=== PATIENT | female | born 1975 | race Caucasian/White ===

== ENCOUNTER 2018-10-29 13:04 | Day surgery (SDC) | payer OTHER, MEDICAID, SELFPAY ==
--- NOTE | 2018-10-29 | PATH_ITS ---
[facility] Accession Number: [id number] . 01 Material submitted: . DUODENAL BIOPSY . 01 Clinical history: . DUODENAL BIOPSY R/O CELIAC SPRUE . 02 Diagnosis: Biopsy, Duodenum: Fragments of normal appearing duodenum mucosa. Normal delicate mucosal villi present. Negative for significant inflammation, dysplasia and malignancy. MRV/10/31/2018 . 02 Electronically signed: . Jorge A Fuller MD, Pathologist NPI- [id number] . 01 Gross description: . DUODENAL BIOPSY: Received in formalin are multiple fragment(s) of magdaleno, soft tissue measuring 0.6 x 0.4 x 0.2 cm in aggregate submitted entirely in 1 cassette(s) /CKI /CKI . 02 Pathologist provided ICD-10: R19.7 . 02 CPT . 849363 Performed at: 01 [facility] [address] [id number] MD Vini Ross MD Phone: [phone] Performed at: 02 [facility] [address] [place], [place] [id number] MD Claudia Suarez MD Phone: [phone]
[2018-10-29 14:29] VITALS: BP 150/89; PULSE 85; RESP 15; TEMP 36.8; O2SAT 97; BMI 41.0
[2018-10-29] MEDS: SODIUM CHLORIDE 0.9% 1,000 ML 200 ML IV (14:35)
[2018-10-29] MEDS: ONDANSETRON 4 MG/2 ML INJ IV (15:15)
--- NOTE | 2018-10-29 15:15 | PM.PREOP ---
Pre-operative Note Interval Note History & Physical reviewed/Exam performed by Physician: Yes Changes to H&P: No H&P completed within 30 days and has changed as indicated here:: none ASA Class (for procedural sedation): II
--- NOTE | 2018-10-29 15:25 | PM.OP.ENDO ---
Operative Date/Time/Diagnoses Date of procedure: 10/29/18 Procedure & Clinicians Study performed: EGD with biopsy Moderate conscious sedation was administered by the endoscopy nurse and supervised by the endoscopist. The following parameters were monitored: Oxygen saturation, heart rate, blood pressure, and response to care. Sedation: 4 mg midazolam, 150 micro g fentanyl, 4 mg Zofran Indications: Right upper quadrant abdominal pain, diarrhea Procedure Notes Procedure in detail: Prior to the procedure, history and physical was performed, and patient medications and allergies were reviewed. Preprocedure nursing history and assessment was reviewed. Patient identification and proposed procedure were verified by the physician and nurse in the procedure room. The physical status of the patient was reassessed after the procedure. After informed consent was obtained including risks, benefits, and alternatives, the scope was passed under direct vision. Throughout the procedure, the patient's blood pressure, pulse, and oxygen saturations were monitored continuously. The upper endoscope was introduced through the mouth and advanced to the 2nd portion of the duodenum. Retroflexion was performed in the stomach. The patient tolerated the procedure well. The entire esophagus was normal appearing. The Z-line was regular and was located at 37 cm from the incisors. The entire examined stomach was normal appearing. The entire examined duodenum was normal appearing. Biopsies taken to rule out celiac sprue Impression: Normal appearing esophagus and Z-line Normal appearing stomach Normal appearing duodenum, biopsied Sedation minutes: 10 Complications: other (EBL minimal. No complications) Plan for aftercare: Recommendations: Follow-up pathology results Resume home medications Resume previous diet Follow up in GI clinic as previously scheduled Discharge home with escort
[2018-10-29] MEDS: MIDAZOLAM 5 MG/5 ML VIAL IV (15:26)
[2018-10-29] MEDS: fentaNYL 250 MCG/5 ML INJ IV (15:27)
[2018-10-29 15:29] VITALS: BP 140/75; PULSE 86; RESP 14; TEMP 36.4; O2SAT 96
[2018-10-29 15:34] VITALS: BP 139/87; PULSE 88; RESP 14; O2SAT 93
[2018-10-29 15:38] VITALS: BP 145/82; PULSE 82; RESP 18; O2SAT 96
[2018-10-29 15:47] VITALS: BP 138/78; PULSE 78; RESP 16; O2SAT 97
[2018-10-29 15:50] VITALS: BP 135/75; PULSE 80; RESP 16; O2SAT 98
== END 2018-10-29 15:59 | disposition home or self-care (01) ==
LOC: ENDO 13:08
PROVIDERS: PCP Internal Medicine; Visit Provider Internal Medicine
PROC: 0DJ08ZZ Inspection of Upper Intestinal Tract, Via Natural or Artificial Opening Endoscopic (ICD-10-PCS; CPT 43235; principal; 2018-10-29 14:30)
DX: R10.11 Right upper quadrant pain (principal); R19.7 Diarrhea, unspecified; E66.9 Obesity, unspecified; Z68.41 Body mass index [BMI] 40.0-44.9, adult; Z72.0 Tobacco use
CPT/HCPCS: 43239; J2250; J2405; J3010

== ENCOUNTER 2018-12-10 11:13 | Day surgery (SDC) | payer OTHER, MEDICAID, SELFPAY ==
[2018-12-09 09:46] VITALS: BMI 41.3
[2018-12-10] VITALS (11 sets, daily range): BP systolic 124–159; BP diastolic 73–97; PULSE 87–111; RESP 14–17; TEMP 36.4–37.2; O2SAT 95–98; BMI 41.3
--- NOTE | 2018-12-10 | PATH_ITS ---
[facility] Accession Number: [id number] . 01 Material submitted: . gallbladder - GALLBLADDER AND CONTENTS . 02 Diagnosis: Gallbladder and Contents, Laparoscopic Cholecystectomy: Chronic cholecystitis with cholesterolosis, cholelithiasis, and associated benign, reactive papillary hyperplasia. One benign cystic duct lymph node (0/1). Dense eosinophils present at the serosal surface, non-specific. Please see comment. MRV/12/12/2018 . 02 Comment: Please correlate with the possible presence of peripheral eosinophilia. Increased eosinophils can be associated with drug reaction, infection, and neoplasia, and allergies. . 02 Electronically signed: . Malka Grant MD, Pathologist NPI- [id number] . 01 Gross description: . Received in formalin, labeled gallbladder + contents, is an opened gallbladder (length-10.3 cm, diameter-3.5 cm) with magdaleno-webber smooth shiny serosa and a patent cystic duct. A possible lymph node (0.7 x 0.5 x 0.2 cm) is identified. The lumen is void of contents. The mucosa is magdaleno, smooth and flat with an irregular papillary area (3.2 x 1.2 cm) located 0.8 cm from the cystic duct resection margin. The wall is up to 0.2 cm thick. Also submitted are multiple brown smooth multifaceted calculi (6.8 x 5.5 x 2.7 cm) with tracie crystalline cut surfaces. Section code: (A1) cystic duct resection margin and two serial sections from the body; (A2-A4) irregular mucosa, serially sectioned, manufacturer's representative; (A5) two longitudinal sections from the fundus; (A6) one bisected possible lymph node. ([id number]) /MRV . 02 Pathologist provided ICD-10: K80.60 . 02 CPT . 295884 Performed at: 01 [facility] [address] [id number] MD Vini Ross MD Phone: [phone] Performed at: 02 [facility] [address] [place], [place] [id number] MD Claudia Suarez MD Phone: [phone]
[2018-12-10] MEDS: LACTATED RINGERS 1,000 ML 42 ML IV ×2 (11:39→16:40)
--- NOTE | 2018-12-10 14:24 | PM.HP.1 ---
History of Present Illness Date Patient Seen: 12/10/18 Time Patient Seen: 14:25 Chief complaint: 03002 Narrative: Patient seen in exam Unchanged from recent H&P Patient History Medical History (Updated 12/09/18 @ 09:59 by Vira Chandler RN) Abdominal pain (Acute) Blood in stool (Acute) Constipation (Acute) Current every day smoker (Acute) Diarrhea (Acute) Fatigue (Acute) Generalized headaches (Acute) Weight gain (Acute) Anxiety (Chronic) Arthritis (Chronic) Surgical History (Updated 12/09/18 @ 09:57 by Vira Chandler RN) History of endometrial ablation (Acute ~04/2015) History of surgical removal of ganglion cyst (Acute) History of placement of ear tubes (Resolved) Hx of appendectomy (Resolved ~2007) Hx of tonsillectomy (Resolved ~1995) Hx of tubal ligation (Resolved ~06/2016) S/P left knee arthroscopy (Resolved) S/P right knee arthroscopy (Resolved) Family History (Updated 12/08/18 @ 09:49 by Margot Buenrostro RN) Mother Gallstones Diabetes mellitus Grandmother Cancer Social History (Updated 12/08/18 @ 09:50 by Margot Buenrostro RN) marital status: household members: spouse occupational status: unemployed Smoking Status: Never smoker alcohol intake: current substance use type: does not use Family & Social History Family History (Updated 12/08/18 @ 09:49 by Margot Buenrostro RN) Mother Gallstones Diabetes mellitus Grandmother Cancer Social History: household members spouse Tobacco & Substance use: Smoking Status Never smoker alcohol intake current Meds Home Medications Medication Instructions Recorded Confirmed Type alprazolam 0.25 mg tablet 0.25 mg PO BID PRN 12/08/18 12/10/18 History Allergies Allergy/AdvReac Type Severity Reaction Status Date / Time aspirin Allergy Severe Difficulty Verified 12/10/18 11:47 Breathing hydrocodone [From Vicodin] Allergy Severe Rash Verified 12/10/18 11:47 red dye Allergy Severe Reaction Verified 12/10/18 11:47 not listed Exam Vital Signs (past 8 hours): - 12/10/18 11:40 Temperature 98.9 F Pulse Rate 94 H Respiratory Rate 16 Blood Pressure 126/79 Pulse Oximetry 97 Oxygen Delivery Method Room Air
[2018-12-10] MEDS: CEFTRIAXONE 2 GM/50 ML FROZ.PIGGY IV (14:28)
[2018-12-10] MEDS: metroNIDAZOLE 500 MG/100 ML PIGGYBACK 100 MG IV (14:40)
--- NOTE | 2018-12-10 15:03 | SUR.OPER ---
Supine on padded OR bed, head on pillow, safety belt at thigh, left arm padded and tucked at side. Right arm secured on padded arm oard <90 degrees abduction. Legs uncrossed. Padded footboard in place. Tape over blanket to secure lower legs.
[2018-12-10] MEDS: BUPIVACAINE 0.25% W/ EPI (PF) 10 ML VIAL 20 ML INJ (15:20)
[2018-12-10] MEDS: ONDANSETRON 4 MG/2 ML INJ IV (16:17)
--- NOTE | 2018-12-10 16:24 | P.OP_ITS ---
Operative Date/Time/Diagnoses Date of procedure: 12/10/18 Time of procedure: 16:14 Pre-op diagnosis: biliary colic Post-op diagnosis: same Procedure & Clinicians Procedure: Laparoscopic cholecystectomy Same procedure as scheduled: Yes Indications: 43-year-old female with a history of right upper quadrant pain consistent with biliary colic. Ultrasound demonstrated gallstones. Surgeon: Juan Jose Love Click Yes if Unassisted: Yes Anesthesia Type: General Operative Notes Findings: Large noninflamed gallbladder Numerous large faceted pigment stones Closure Type: primary Specimen(s): other (Gallbladder and contents) Estimated Blood Loss (mL): 30 Procedure in detail: Patient was brought to the operating room she was intubated without incident she was prepped and draped in usual sterile fashion and a time- out was completed. Entry into the abdomen was performed using Veress needle technique. An orogastric tube was inserted placed on suction at burrows's point over the left upper quadrant small wheal of local anesthetic was raised a small stab incision was made and a Veress needle was inserted until a distinct click was felt. The needle was aspirated there was no succus or blood and there was a confirmatory saline drop test. The abdomen was then insufflated at low-flow and pressures remained low. The abdomen was then fully insufflated to 15 mm of mercury. A small vertically oriented incision was tucked just inside the superior umbilical crown through this a 5 mm trocar was advanced using direct visualization technique with a 0 degree laparoscope. All layers of the abdominal wall were visualized until the dark space of the insufflated abdomen was entered. The the Veress needle entry site was identified there was no blood or injury. And it was removed without incident. Two 5 mm ports were then placed in the right upper quadrant and a 11 mm port was placed in the epigastrium. The patient was placed into reverse Trendelenburg position with the right side up. The gallbladder was readily identified the fundus was grasped and elevated cephalad and infundibulum was grasped retracted laterally this opened up the cystic triangle. The visceral peritoneum overlying the gallbladder was then incised using hook cautery over the medial and lateral a spects of the organ. Using blunt dissection and the underlying adventitial tissue was dissected clear until a distinct cystic duct was identified emanating directly from the gallbladder itself, further blunt dissection identified a cystic artery at the level of the gallbladder lymph node which was found to directly emanate from the gallbladder itself. These structures were skeletonized with windows behind both. The critical view of safety was obtained. These structures were then clipped and divided using laparoscopic clips. Single lumen was identified within each. The gallbladder was then reflected out the gallbladder fossa without incident using hook cautery to separate it off a Isidoro's capsule. There was a small posterior branch of the cystic artery that was clipped and divided without incident. The gallbladder was then fully removed the gallbladder fossa placed in Endo-Catch bag and later removed from the abdomen via the epigastric port site. The area was then irrigated and suction dry hemostasis was confirmed. Several areas of small amount of bleeding on the liver bed were cauterized without incident. Clips were confirmed to be well placed. Epigastric port was then removed and the fascial defect was enlarged using large clamp. The gallbladder was largely removed via the Endo-Catch bag however there were several large stones that lodged at the level of the fascia. As a consequence the Endo-Catch bag was opened in the gallbladder itself was opened and these large faceted pigment stones were removed individually using a snap. The bag was removed. Three stones did escape from a small hole in the bag these were removed using a laparoscopic stone grasper. The subcutaneous tissue was then copiously irrigated as was the abdominal area right upper quadrant where the stones did come in contact with viscera. It was suctioned dry. 0 Vicryl ties were then used to close the fascial defect at the epigastric port utilizing a fascial closure device. Ports were withdrawn under direct visualization the abdomen was deinsufflated. Subcutaneous tissue was then copiously irrigated with special attention to the epigastric port and then skin was closed using deep dermal layer followed by monofilament absorbable suture in subcuticular fashion. Skin glue was applied the patient was Extubated and brought to PACU without incident Complications: none Condition: stable Disposition: PACU Plan for aftercare: Home
[2018-12-10] MEDS: fentaNYL 100 MCG/2 ML INJ 50 MCG IV ×3 (16:31→17:29)
[2018-12-10] MEDS: hydrOXYzine 50 MG/ML INJ 25 MG IM (17:00)
--- NOTE | 2018-12-10 17:19 | SUR.PHASEI ---
Post Op PACU handoff report note: VSS, O2 sat on 2 L/CHARRER WNL, Pain level improved after medication treatment from 9 level to 7 level. Pain sharp and burning sensation to abdomen. Small incision sites X 5 CDI. No drainage noted. IV sited right hand patent. Repositioned to left side with some pain relief. Nausea resolving. Verbal report given to Baylee Alves RN. Suzy Grant RN
--- NOTE | 2018-12-10 17:34 | SUR.PHASEI ---
1729 Rx for pain, nausea resolved; ice chips and crackers given. HOB elevated.
[2018-12-10] MEDS: OXYCODONE IR 5 MG TABLET PO (17:39)
--- NOTE | 2018-12-10 17:43 | SUR.PHASEI ---
States that she is feeling much better; tolerating PO well.
--- NOTE | 2018-12-10 18:30 | SUR.PHASEII ---
Addendum entered by Jami Alves R.N. 12/10/18 18:32: Documentation intended for discharge time. Original Note: Stable, no further nausea, pain controlled w/med; discussed deep breathing and ankle waves to prevent complications as well as a stool softener. No further questions from patient or family. Resp unlabored, skin warm and dry.
== END 2018-12-10 18:27 | disposition home or self-care (01) ==
PROVIDERS: PCP Nurse Practitioner Family; Visit Provider Surgery
PROC: 0FT44ZZ Resection of Gallbladder, Percutaneous Endoscopic Approach (ICD-10-PCS; CPT 47562; principal; 2018-12-10 12:30)
DX: K80.60 Calculus of gallbladder and bile duct with cholecystitis, unspecified, without obstruction (principal); F41.9 Anxiety disorder, unspecified
CPT/HCPCS: 47562; J0696; J1100; J1885; J2250; J2405; J2704; J3010; J3410